=== PATIENT | male | born 1990 | race Caucasian/White ===

== ENCOUNTER 2016-05-24 14:22 | Emergency (ER) | payer OTHER ==
[2016-05-24 14:51] VITALS: BP 141/107
[2016-05-24] MEDS ORDERED: Diphtheria,Pertussis(Acell),Tetanus Vaccine 0.5 ML Syringe IM ONE (14:52)
[2016-05-24] MEDS ORDERED: Lidocaine 1% 20 ML MDV INJECT ONE (15:06)
[2016-05-24] MEDS ORDERED: Lidocaine 1% with EPINEPHrine 1:100,000 20 ML MDV INJECT ONE (15:06)
[2016-05-24] MEDS ORDERED: ceFAZolin 1 GM Vial IM ONE (15:06)
[2016-05-24] MEDS ORDERED: Water For Injection, Sterile 20 ML SDV INJECT SCH (15:15)
--- NOTE | 2016-05-24 16:35 | EDM.PDOC ---
ED HPI Skin/Rash - General Chief Complaint: Laceration Stated Complaint: CUT TENDON IN FINGER ON R HAND Time Seen by Provider: 05/24/16 14:31 - History of Present Illness INITIAL COMMENTS - FREE TEXT/NARRATIVE: HISTORY AND PHYSICAL: History of present illness: [26-year-old male now presents emergency department after laceration to the palm side of his left ring finger close to his hand. Laceration just happened prior to arrival. Patient is unable to flex his distal interphalangeal joint. He can flex the proximal joint. His tetanus is not up-to-date. No other injury. Sensation is intact Review of systems: As per history of present illness and below otherwise all systems reviewed and negative. Past medical history: As per history of present illness and as reviewed below otherwise noncontributory. Surgical history: As per history of present illness and as reviewed below otherwise noncontributory. Social history: No reported history of drug or alcohol abuse. Family history: As per history of present illness and as reviewed below otherwise noncontributory. Physical exam: HEENT: Atraumatic, normocephalic, negative for conjunctival pallor or scleral icterus, mucous membranes moist, neck supple, nontender, trachea midline. Lungs: Clear to auscultation, breath sounds equal bilaterally, chest nontender. Heart: S1S2, regular, negative for clicks, rubs, or JVD. Abdomen: nondistended, Pelvis: Stable nontender. Genitourinary: Deferred. Rectal: Deferred. Extremities: Atraumatic, negative for cords or calf pain. Neurovascular unremarkable. Neuro: Awake, alert, oriented. Inability to flex the distal interphalangeal joint of the left fourth digit, Motor and sensory otherwise unremarkable throughout. Exam nonfocal. Diagnostics: [] Therapeutics: [] Impression: [] Plan: [Patient with flexor tendon laceration. Tetanus updated. Ancef given. Case discussed with plastic surgery who will see patient in the emergency department Dr. Rubio presents emergent [facility] evaluated patient and will arrange outpatient followup for surgical treatment tomorrow. Patient aware critical importance of definitive management without which he will have a permanent disability and inability to flex that digit. He agrees with outpatient followup and strict return precautions given] Definitive disposition and diagnosis as appropriate pending reevaluation and review of above. - Related Data Allergies Allergy/AdvReac Type Severity Reaction Status Date / Time No Known Allergies Allergy Verified 05/24/16 14:36 Home Meds: Ambulatory Orders Medication Instructions Recorded Confirmed . [No Known Home Meds] 08/06/14 05/24/16 Past Medical History - Past Health History Medical/Surgical History: Denies Medical/Surgical History - Infectious Disease History Infectious Disease History: Reports: Chicken pox Social & Family History - Family History Family Medical History: Noncontributory - Tobacco Use Smoking Status *Q: Light Tobacco Smoker Years of Tobacco use: 9 Packs/Tins Daily: 0.3 Second Hand Smoke Exposure: No - Caffeine Use Caffeine Use: Reports: Coffee, Energy drinks Other Caffeine Use: occassionally - Alcohol Use Days Per Week of Alcohol Use: 6 Number of Drinks Per Day: 1 Total Drinks Per Week: 6 Date of Last Drink: 05/23/16 Time of Last Drink: 20:00 - Recreational Drug Use Recreational Drug Use: No ED ROS GENERAL - Review of Systems Review Of Systems: See Below (History of present illness) ED EXAM, SKIN/RASH Exam: See Below (History of present illness) Course - Vital Signs Last Recorded V/S: Last Vital Signs Temp 36.6 C 05/24/16 14:34 Pulse 109 H 05/24/16 14:34 Resp 16 05/24/16 14:34 BP 141/107 H 05/24/16 14:34 Pulse Ox 96 05/24/16 14:34 - Orders/Labs/Meds Orders: Active Orders 24 hr Category Date Time Status Vaccines to be Administered [RC] PER UNIT ROUTINE Care 05/24/16 14:52 Active Water For Injection, Sterile [Sterile Water for Med 05/24/16 15:15 Active Injection] 2.5 ml INJECT STAT Medication Orders Sterile Water (Sterile Water For Injection) 2.5 ml INJECT STAT [place] Last Admin: 05/24/16 15:24 Dose: 2.5 ml Meds: Medications Generic Name Dose Route Start Last Admin Trade Name Freq PRN Reason Stop Dose Admin Sterile Water 2.5 ml 05/24/16 15:15 05/24/16 15:24 Sterile Water For Injection INJECT 2.5 ml STAT [place] Administration Discontinued Medications Generic Name Dose Route Start Last Admin Trade Name Freq PRN Reason Stop Dose Admin Cefazolin Sodium 1 gm 05/24/16 15:06 05/24/16 15:24 Ancef IM 05/24/16 15:07 1 gm ONETIME ONE Administration Diphtheria/Tetanus/Acell Pertussis 0.5 ml 05/24/16 14:52 05/24/16 14:58 Adacel IM 05/24/16 14:53 0.5 ml .ONCE ONE Administration Lidocaine HCl 20 ml 05/24/16 15:06 Xylocaine 1% INJECT 05/24/16 15:07 ONETIME ONE Lidocaine/Epinephrine 20 ml 05/24/16 15:06 Xylocaine 1% With Epinephrine 1:100,000 INJECT 05/24/16 15:07 ONETIME ONE Departure - Departure Time of Disposition: 16:29 Disposition: Home, Self-Care 01 Condition: good Clinical Impression: Flexor tendon laceration of finger with open wound, Finger laceration involving tendon Referrals: PCP,None [Primary Care Provider] - Forms: ED Department Discharge Additional Instructions: Your left ring finger laceration has cut the tendon which allows you to flex the and joint on the finger. Given a dose of antibiotics to prevent infection. Your tetanus is updated. Take ibuprofen and/or Tylenol as needed for pain. It is throbbing elevate tonight. Followup with Dr. Barragan tomorrow as directed for surgical treatment. Do not eat or drink anything after midnight. It is critically important that you followup with Dr. Garzon for definitive surgical care and repair of tendon without which she would have a permanent disability in her nondominant hand. She will directly regarding further postoperative care. - My Orders Last 24 Hours: My Active Orders 05/24/16 14:52 Vaccines to be Administered [RC] PER UNIT ROUTINE 05/24/16 15:15 Water For Injection, Sterile [Sterile Water for Injection] 2.5 ml INJECT STAT - Assessment/Plan Last 24 Hours: My Active Orders 05/24/16 14:52 Vaccines to be Administered [RC] PER UNIT ROUTINE 05/24/16 15:15 Water For Injection, Sterile [Sterile Water for Injection] 2.5 ml INJECT STAT
--- NOTE | 2016-05-24 16:44 | PCM.HP ---
H&P History of Present Illness - General Date of Service: 05/24/16 Admit Problem/Dx: laceration of flexor tendon to left ring finger. Source of Information: Patient, Provider, RN History Limitations: Reports: No limitations - History of Present Illness Initial Comments - Free Text/Narative: laceration today at work with metal. unable to move finger at the dip joint Onset of Symptoms: Reports: today, sudden Duration of Symptoms: Reports: Hour(s): Location: Reports: upper extremity, left Quality: Reports: Ache, Throbbing Severity: mild Improves with: Reports: Immobilization Worsens with: Reports: Movement Context: Reports: trauma Associated Symptoms: Reports: no other symptoms - Related Data Allergies/Adverse Reactions: Allergies Allergy/AdvReac Type Severity Reaction Status Date / Time No Known Allergies Allergy Verified 05/24/16 14:36 Home Medications: Home Meds . [No Known Home Meds] 08/06/14 [History] Past Medical History - Past Health History Medical/Surgical History: Denies Medical/Surgical History - Infectious Disease History Infectious Disease History: Reports: Chicken pox Social & Family History - Family History Family Medical History: Noncontributory - Tobacco Use Smoking Status *Q: Light Tobacco Smoker Years of Tobacco use: 9 Packs/Tins Daily: 0.3 Second Hand Smoke Exposure: No - Caffeine Use Caffeine Use: Reports: Coffee, Energy drinks Other Caffeine Use: occassionally - Alcohol Use Days Per Week of Alcohol Use: 6 Number of Drinks Per Day: 1 Total Drinks Per Week: 6 Date of Last Drink: 05/23/16 Time of Last Drink: 20:00 - Recreational Drug Use Recreational Drug Use: No H&P Review of Systems - Review of Systems: Review Of Systems: See Below General: Reports: no symptoms HEENT: Reports: no symptoms Pulmonary: Reports: No Symptoms Cardiovascular: Reports: no symptoms Gastrointestinal: Reports: No symptoms Genitourinary: Reports: no symptoms Musculoskeletal: Reports: hand pain Psychiatric: Reports: no symptoms Neurological: Reports: No Symptoms Exam - Exam Exam: See Below - Vital Signs Vital Signs: Last Vital Signs Temp 97.9 F 05/24/16 14:34 Pulse 109 H 05/24/16 14:34 Resp 16 05/24/16 14:34 BP 141/107 H 05/24/16 14:34 Pulse Ox 96 05/24/16 14:34 Weight: 261 lb 0.437 oz - Exam General: alert, oriented, cooperative HEENT: EOMI Lungs: Clear to auscultation, Normal respiratory effort Cardiovascular: regular rhythm Extremities: other (laceration to the left ring finger) Skin: warm, dry, incision (left ring finger over the proximal phalanx) Neuro Extensive - Mental Status: alert, oriented x3, normal mood/affect Psychiatric: alert, normal affect, normal mood *Q Meaningful Use (ADM) - VTE *Q VTE Criteria *Q: - VTE Risk Assess *Q Each Risk Factor Represents 1 Point: None Total Score 1 Point Risk Factors: 0 - Stroke *Q Stroke Criteria *Q: - AMI *Q AMI Criteria *Q: - Problem List (1) Flexor tendon laceration of finger with open wound SNOMED Code(s): 45108483 ICD Code: S56.129A - LACERAT FLEXOR MUSC/FASC/TEND UNSP FINGER AT FORARM LV, INIT; S61.209A - UNSP OPEN WOUND OF UNSP FINGER W/O DAMAGE TO NAIL, INIT Status: Acute Current Visit: Yes Qualifiers: Encounter type: initial encounter Qualified Code(s): S56.129A - Laceration of flexor muscle, fascia and tendon of unspecified finger at forearm level, initial encounter; S61.209A - Unspecified open wound of unspecified finger without damage to nail, initial encounter Problem List Initiated/Reviewed/Updated: Yes Orders Last 24hrs: Active Orders 24 hr Category Date Time Status Vaccines to be Administered [RC] PER UNIT ROUTINE Care 05/24/16 14:52 Active Water For Injection, Sterile [Sterile Water for Med 05/24/16 15:15 Active Injection] 2.5 ml INJECT STAT Medication Orders Sterile Water (Sterile Water For Injection) 2.5 ml INJECT STAT [place] Last Admin: 05/24/16 15:24 Dose: 2.5 ml Assessment/Plan Comment:: Plan OR treatment within 24 hours for definitive repair. informed consent obtained.
== END 2016-05-24 16:47 | disposition home or self-care (01) ==
LOC: MW.ED 14:22
DX: S66.125A Laceration of flexor muscle, fascia and tendon of left ring finger at wrist and hand level, initial encounter (principal); F17.210 Nicotine dependence, cigarettes, uncomplicated; W45.8XXA Other foreign body or object entering through skin, initial encounter; Y92.69 Other specified industrial and construction area as the place of occurrence of the external cause; Y99.0 Civilian activity done for income or pay; Z23 Encounter for immunization
CPT/HCPCS: 90471; 90715; 96372; 99283; J0690

== ENCOUNTER 2016-05-25 11:26 | Day surgery (SDC) | payer OTHER ==
[~2016-05-25 11:26] MED LIST: Acetaminophen/HYDROcodone 325-5 MG Tab PO PRN; Bupivacaine 0.25%/EPINEPHrine 1:200,000 10 ML SDV INJECT ONE; Bupivacaine 0.25%/EPINEPHrine 1:200,000 10 ML SDV ONE; Lactated Ringers 1,000 ML IV SCH; ceFAZolin 2 GM in Premix Bag 1 BAG IV ONE
--- NOTE | 2016-05-25 14:28 | PCM.PREANE ---
Preanesthetic Assessment - Anesthesia/Transfusion/Family Hx Anesthesia History: No Prior Anesthesia Family History of Anesthesia Reaction: No Transfusion History: No Prior Transfusion(s) - Review of Systems General: No Symptoms Pulmonary: No Symptoms Cardiovascular: No Symptoms Gastrointestinal: No symptoms Neurological: No Symptoms Other: Reports: None - Physical Assessment NPO Status Date: 05/24/16 Height: 1.78 m Weight: 113.398 kg ASA Class: 1 Mental Status: Alert & Oriented x3 Airway Class: Mallampati = 1 Dentition: Reports: Normal Dentition ROM/Head Extension: Full Lungs: Clear to auscultation, Normal respiratory effort Cardiovascular: Regular Rate, Regular Rhythm - Allergies Allergies/Adverse Reactions: Allergies Allergy/AdvReac Type Severity Reaction Status Date / Time No Known Allergies Allergy Verified 05/24/16 14:36 - Acknowledgements Anesthesia Type Planned: General Anesthesia Pt an Appropriate Candidate for the Planned Anesthesia: Yes Alternatives and Risks of Anesthesia Discussed w Pt/Guardian: Yes Pt/Guardian Understands and Agrees with Anesthesia Plan: Yes PreAnesthesia Questionnaire - Past Health History Medical/Surgical History: Denies Medical/Surgical History HEENT History: Reports: None Cardiovascular History: Reports: None Respiratory History: Reports: None Gastrointestinal History: Reports: None Genitourinary History: Reports: None Musculoskeletal History: Reports: None Neurological History: Reports: None Psychiatric History: Reports: None Endocrine/Metabolic History: Reports: Obesity/BMI 30+ Hematologic History: Reports: None Immunologic History: Reports: None Oncologic (Cancer) History: Reports: None Dermatologic History: Reports: None - Infectious Disease History Infectious Disease History: Reports: Chicken pox - Past Surgical History Head Surgeries/Procedures: Reports: None HEENT Surgical History: Reports: None Cardiovascular Surgical History: Reports: None Respiratory Surgical History: Reports: None GI Surgical History: Reports: None Male Surgical History: Reports: None Endocrine Surgical History: Reports: None Neurological Surgical History: Reports: None Musculoskeletal Surgical History: Reports: None Oncologic Surgical History: Reports: None Dermatological Surgical History: Reports: None - SUBSTANCE USE Smoking Status *Q: Current Every Day Smoker Tobacco Use Within Last Twelve Months: Smokeless Tobacco Second Hand Smoke Exposure: No Days Per Week of Alcohol Use: 6 Number of Drinks Per Day: 1 Total Drinks Per Week: 6 Recreational Drug Use History: No - HOME MEDS Home Medications: Home Meds . [No Known Home Meds] 08/06/14 [History] - CURRENT (IN HOUSE) MEDS Current Meds: Current Medications Hydrocodone Bitart/Acetaminophen ([place] 325-5 Mg) 1 tab PO Q4H PRN PRN Reason: Pain Lactated Ringer's (Ringers, Lactated) 1,000 mls @ 125 mls/hr IV ASDIRECTED [place] Discontinued Medications Bupivacaine HCl/Epinephrine Bitart (Marcaine 0.25%/Epinephrine 1:200,000) 10 ml INJECT ONETIME ONE Stop: 05/25/16 10:01 Bupivacaine HCl/Epinephrine Bitart (Marcaine 0.25%/Epinephrine 1:200,000) Confirm Administered Dose 20 ml .ROUTE .STK-MED ONE Stop: 05/25/16 10:28 Cefazolin Sodium/Dextrose 2 gm (/ Premix) 50 mls @ 100 mls/hr IV ONETIME ONE Stop: 05/25/16 08:29 Preanesthetic Assessment - ANESTHESIA/TRANSFUSION/FAMILY HX Family History of Anesthesia Reaction: No - PHYSICAL ASSESSMENT Height: 1.78 m Weight: 113.398 kg - ALLERGIES Allergies/Adverse Reactions: Allergies Allergy/AdvReac Type Severity Reaction Status Date / Time No Known Allergies Allergy Verified 05/24/16 14:36
[2016-05-25] MEDS ORDERED: Lidocaine 2% 5 ML SDV ONE (14:35)
[2016-05-25] MEDS ORDERED: Propofol 200 MG/20 ML SDV ONE (14:35)
[2016-05-25] MEDS ORDERED: fentaNYL 100 MCG/2 ML SDV ONE (14:35)
[2016-05-25] MEDS ORDERED: Midazolam 1 MG/ML 2 ML SDV ONE (14:35)
[2016-05-25] MEDS ORDERED: fentaNYL 100 MCG/2 ML SDV IVPUSH PRN (15:37)
[2016-05-25] MEDS ORDERED: Ondansetron 4 MG/2 ML SDV ONE (15:48)
[2016-05-25] MEDS ORDERED: Ketorolac 30 MG/ML SDV ONE (15:48)
--- NOTE | 2016-05-25 16:27 | PCM.POSTAN ---
POST ANESTHESIA ASSESSMENT - MENTAL STATUS Mental Status: alert, oriented - RESPIRATORY Respiratory Status: respiratory rate WNL, airway patent, O2 saturation stable - CARDIOVASCULAR CV Status: pulse rate WNL, blood pressure stable - GASTROINTESTINAL GI Status: no symptoms - POST OP HYDRATION Hydration Status: adequate & stable - OBSERVATIONS Free Text/Narrative:: Alert and not impressed with his hand and forearm bandage . To phase II.
--- NOTE | 2016-05-25 16:43 | PCM48HPAN ---
Post Anesthesia Note - EVALUATION WITHIN 48HRS OF ANESTHETIC Vital Signs in Normal Range: Yes Patient Participated in Evaluation: Yes Respiratory Function Stable: Yes Airway Patent: Yes Cardiovascular Function Stable: Yes Hydration Status Stable: Yes Pain Control Satisfactory: Yes Nausea and Vomiting Control Satisfactory: Yes Mental Status Recovered: Yes
[2016-05-25 17:14] VITALS: BP 139/76
--- NOTE | 2016-05-26 14:22 | PCM.OPNOTE ---
- General Post-Op/Procedure Note Date of Surgery/Procedure: 05/25/16 Operative Procedure(s): repair of fds and fdp tendons to the left ring finger Pre Op Diagnosis: left ring finger laceration with tendon involvement zone 2 Post-Op Diagnosis: Same Anesthesia Technique: General LMA, Local Primary Surgeon: Ethel Garzon Sales Project Administrator: Elysia Armando Complications: None Condition: Good Free Text/Narrative:: Intake & Output 05/25/16 05/26/16 05/26/16 23:59 07:59 15:59 Intake Total 1000 Balance 1000 fdp complete transection, fds transection of the radial slip.
--- NOTE | 2016-05-30 06:21 | OR ---
SURGEON: STU GUALLPA MD DATE OF PROCEDURE: 05/25/2016 PREOPERATIVE DIAGNOSIS: Left ring finger laceration with tendon involvement in zone II. POSTOPERATIVE DIAGNOSIS: 1. Left ring finger laceration with tendon involvement in zone II with laceration of one slip of the flexor digitorum superficialis and complete transection of the flexor digitorum profundus tendon in zone II. PROCEDURE: 1. Repair of flexor digitorum superficialis one slip in zone II. 2. Repair of flexor digitorum profundus tendon to the left ring finger in zone ii. ASSEMBLY LINE UPHOLSTERER: BEE Hoffmann. ANESTHESIA: General LMA with local. INDICATION: Mr. Parikh is a 26-year-old gentleman, who was unfortunately seen in the emergency room for laceration of the flexor tendon of the left ring finger. He was unable to move at the distal interphalangeal joint. Risks and benefits of repair and exploration were discussed with him and he was in agreement to proceed. Risks were including, but not limited to, bleeding, infection, damage to underlying or overlying structures, possible need for future interventions and possible scarring. PROCEDURE IN DETAIL: After informed consent was obtained and placed on the chart, the patient was brought to the operating theater and laid in the supine position. After adequate local anesthetic and general LMA anesthesia, attention was then paid to a Jae type incision over the area of the laceration in extension of this. It was copiously irrigated and the tendon ends were reapproximated very easily. The flexor digitorum superficialis radial slip was also involved and this was repaired using a single FiberWire stitch for smoothing of the tendon, but did not catch. The flexor digitorum profundus tendon was then repaired in a four- strand repair using a modified Martines stitch in a horizontal mattress with a 6- 0 nylon for an epitendinous suture. The patient tolerated this well. This was placed through range of motion and appreciated to glide appropriately through the pulleys. Once this was completed, attention was then paid to closure of the skin, which was done with 5-0 nylon stitches in a horizontal mattress fashion. Once adequately repaired, attention was then paid to the short arm splint. FOLLOWUP INSTRUCTIONS: The patient will see us in clinic in 10 to 14 days for new splint fabrication, and for suture removal. He tolerated this well. He was given a prescription for pain medication. HEGGTHE / MODL /[id number]
== END 2016-05-25 17:10 | disposition home or self-care (01) ==
LOC: MW.SDS 11:26
PROVIDERS: ATTEND Plastic Surgery
PROC: 0LQ80ZZ Repair Left Hand Tendon, Open Approach (ICD-10-PCS; principal; 2016-05-25)
DX: S66.125A Laceration of flexor muscle, fascia and tendon of left ring finger at wrist and hand level, initial encounter (principal); W45.8XXA Other foreign body or object entering through skin, initial encounter; E66.9 Obesity, unspecified; F17.220 Nicotine dependence, chewing tobacco, uncomplicated
CPT/HCPCS: 26356; J1885; J2250; J2405; J3010; J7120; 01810; J2704

== ENCOUNTER 2016-06-22 06:34 | Day surgery (SDC) | payer OTHER ==
--- NOTE | 2016-06-22 06:57 | PCM.PREANE ---
Preanesthetic Assessment - Anesthesia/Transfusion/Family Hx Anesthesia History: Prior Anesthesia Without Reaction Family History of Anesthesia Reaction: No Transfusion History: No Prior Transfusion(s) Intubation History: Unknown - Review of Systems General: No Symptoms Pulmonary: No Symptoms Cardiovascular: No Symptoms Gastrointestinal: No symptoms Neurological: No Symptoms Other: Reports: None - Physical Assessment Height: 1.78 m Weight: 113.398 kg ASA Class: 2 Mental Status: Alert & Oriented x3 Airway Class: Mallampati = 2 Dentition: Reports: Normal Dentition Thyro-Mental Finger Breadths: 3 Mouth Opening Finger Breadths: 2 ROM/Head Extension: Full Lungs: Clear to auscultation, Normal respiratory effort Cardiovascular: Regular Rate, Regular Rhythm - Allergies Allergies/Adverse Reactions: Allergies Allergy/AdvReac Type Severity Reaction Status Date / Time No Known Allergies Allergy Verified 05/24/16 14:36 - Blood Blood Available: No - Anesthesia Plan Pre-Op Medication Ordered: None - Acknowledgements Anesthesia Type Planned: General Anesthesia Pt an Appropriate Candidate for the Planned Anesthesia: Yes Alternatives and Risks of Anesthesia Discussed w Pt/Guardian: Yes Pt/Guardian Understands and Agrees with Anesthesia Plan: Yes PreAnesthesia Questionnaire - Past Health History Medical/Surgical History: Denies Medical/Surgical History HEENT History: Reports: None Cardiovascular History: Reports: None Respiratory History: Reports: None Gastrointestinal History: Reports: None Genitourinary History: Reports: None Musculoskeletal History: Reports: None Neurological History: Reports: None Psychiatric History: Reports: None Endocrine/Metabolic History: Reports: Obesity/BMI 30+ Hematologic History: Reports: None Immunologic History: Reports: None Oncologic (Cancer) History: Reports: None Dermatologic History: Reports: None - Infectious Disease History Infectious Disease History: Reports: Chicken pox - Past Surgical History Head Surgeries/Procedures: Reports: None HEENT Surgical History: Reports: None Cardiovascular Surgical History: Reports: None Respiratory Surgical History: Reports: None GI Surgical History: Reports: None Male Surgical History: Reports: None Endocrine Surgical History: Reports: None Neurological Surgical History: Reports: None Musculoskeletal Surgical History: Reports: Other (see below) Other Musculoskeletal Surgeries/Procedures:: previous tendon repair to left middle finger, four weeks ago Oncologic Surgical History: Reports: None Dermatological Surgical History: Reports: None - SUBSTANCE USE Smoking Status *Q: Current Every Day Smoker Tobacco Use Within Last Twelve Months: Smokeless Tobacco Second Hand Smoke Exposure: No Days Per Week of Alcohol Use: 6 Number of Drinks Per Day: 1 Total Drinks Per Week: 6 Recreational Drug Use History: No - HOME MEDS Home Medications: Home Meds . [No Known Home Meds] 06/20/16 [History] - CURRENT (IN HOUSE) MEDS Current Meds: Current Medications Bupivacaine HCl/Epinephrine Bitart (Marcaine 0.25%/Epinephrine 1:200,000) 10 ml INJECT ONETIME ONE Stop: 06/22/16 07:01 Lactated Ringer's (Ringers, Lactated) 1,000 mls @ 125 mls/hr IV ASDIRECTED [facility] Cefazolin Sodium/Dextrose 2 gm (/ Premix) 50 mls @ 100 mls/hr IV ONETIME ONE Stop: 06/22/16 07:29
[2016-06-22] MEDS ORDERED: ceFAZolin 2 GM in Premix Bag 1 BAG IV ONE (07:00)
[2016-06-22] MEDS ORDERED: Bupivacaine 0.25%/EPINEPHrine 1:200,000 10 ML SDV INJECT ONE (07:00)
[2016-06-22] MEDS ORDERED: Lidocaine 2% 5 ML SDV ONE (07:22)
[2016-06-22] MEDS ORDERED: Ondansetron 4 MG/2 ML SDV ONE (07:22)
[2016-06-22] MEDS ORDERED: Midazolam 1 MG/ML 2 ML SDV ONE (07:23)
[2016-06-22] MEDS ORDERED: fentaNYL 250 MCG/5 ML SDV ONE (07:23)
[2016-06-22] MEDS ORDERED: Propofol 200 MG/20 ML SDV ONE (07:23)
[2016-06-22] MEDS ORDERED: Bupivacaine 0.25%/EPINEPHrine 1:200,000 10 ML SDV ONE (07:36)
[2016-06-22] MEDS ORDERED: Lactated Ringers 1,000 ML IV SCH (08:00)
[2016-06-22] MEDS ORDERED: Mineral Oil/Petrolatum Ophth Oint 3.5 GM Tube ONE (08:07)
[2016-06-22] MEDS ORDERED: fentaNYL 100 MCG/2 ML SDV IVPUSH PRN (08:18)
[2016-06-22] MEDS ORDERED: Ketorolac 30 MG/ML SDV ONE (08:24)
--- NOTE | 2016-06-22 09:15 | PCM.POSTAN ---
POST ANESTHESIA ASSESSMENT - MENTAL STATUS Mental Status: alert, oriented - RESPIRATORY Respiratory Status: respiratory rate WNL, airway patent, O2 saturation stable - CARDIOVASCULAR CV Status: pulse rate WNL, blood pressure stable - GASTROINTESTINAL GI Status: no symptoms - PAIN Pain Score: 2 - POST OP HYDRATION Hydration Status: adequate & stable - OBSERVATIONS Free Text/Narrative:: no anesthesia problems
[2016-06-22 09:27] VITALS: BP 143/77
--- NOTE | 2016-06-22 16:04 | PCM.OPNOTE ---
- General Post-Op/Procedure Note Date of Surgery/Procedure: 06/22/16 Operative Procedure(s): exploration and repeat repair of flexor digitorum profundus to the left ring finger Pre Op Diagnosis: disruption of left ring finger tendon repair Post-Op Diagnosis: Same Anesthesia Technique: General LMA, Local Primary Surgeon: Ethel Garzon Scrap Metal Processing Worker: Elysia Armando Complications: None Condition: Good Free Text/Narrative:: Intake & Output 06/22/16 06/22/16 06/22/16 07:59 15:59 23:59 Intake Total 1400 Balance 1400
--- NOTE | 2016-06-24 06:31 | OR ---
SURGEON: STU GUALLPA MD DATE OF PROCEDURE: 06/22/2016 PREOPERATIVE DIAGNOSIS: Disruption of left ring finger tendon repair. POSTOP DIAGNOSIS: Disruption of left ring finger tendon repair. PROCEDURE: Exploration of repeat repair of flexor digitorum profundus to the left ring finger in zone 2. COMPOSITE LAYUP WORKER: Elysia Armando. ANESTHESIA: General LMA with local anesthesia. INDICATIONS: Mr. Parikh is a 26-year-old gentleman with difficulties moving the flexor digitorum profundus tendon after repair. Initially the repair was intact and he woke up one night after the splint came off with his finger hurting significantly more. On evaluation, he does have some wiggle movement of the tip of the finger, but it is not nearly as robust as it should be. It is likely that the repair has come apart or is stuck in significant scar tissue. Risks and benefits of evaluation of the repair site were discussed with him and he was in agreement to proceed. Risks were including, but not limited to, bleeding, infection, damage to underlying or overlying structures, possible need for future interventions and possible scarring. NARRATIVE: After informed consent was obtained and placed on the chart, the patient brought to the operating theater and laid in supine position. After adequate general anesthetic was obtained, the area was prepped and draped in normal fashion. A time-out was completed to confirm side and site. The previous incision was then incised after the tourniquet was insufflated to 200 mmHg and exsanguination of arm. Dissection was carried down through the subcutaneous tissues and the scar tissue. The flexor digitorum profundus was located and the repair sutures were holding, however, the tendon ends had come apart by fraying and pulling through the distal end. The proximal end was brought out and placed into the wound bed under no tension and a modified Martines stitch with a modified [id number] and the interrupted smoothing stitches were used to repair the tendon again. Once this was repaired and the scar tissue had been freed, examination of the flexor digitorum superficialis tendon repair indicated this was intact. The repair was placed through range of motion and appreciated to be good and strong without any signs of separation. The area was irrigated and skin was closed using 5-0 nylon stitches in a horizontal mattress fashion. The patient tolerated the procedure well. All counts of needles were correct at the end the case. The patient was placed in a short-arm splint with the wrist in a slightly flexed position. The patient tolerated this well. FOLLOWUP INSTRUCTIONS: The patient will see us in clinic in approximately 10 days or sooner if any problems, questions, or concerns. JULIAN / FRANCIA /[id number] MTDD
== END 2016-06-22 09:43 | disposition home or self-care (01) ==
LOC: MW.SDS 06:34
PROVIDERS: ATTEND Plastic Surgery
PROC: 0LQ80ZZ Repair Left Hand Tendon, Open Approach (ICD-10-PCS; principal; 2016-06-22)
DX: S66.822D Laceration of other specified muscles, fascia and tendons at wrist and hand level, left hand, subsequent encounter (principal); E66.9 Obesity, unspecified; F17.200 Nicotine dependence, unspecified, uncomplicated; Z98.890 Other specified postprocedural states; Z68.35 Body mass index [BMI] 35.0-35.9, adult
CPT/HCPCS: 26357; J1885; J2250; J2405; J3010; J7120; 01810; J2704